=== PATIENT | male | born 1990 | race Hispanic/Latino ===

== ENCOUNTER 2018-03-13 14:28 | Emergency (ER) | payer BC ==
[~2018-03-13] VITALS: Ht 172.7 cm; Wt 115.0 kg
[~2018-03-13 14:28] MED LIST: AMOXICILLIN500 MG PO; AUGMENTIN500TAB PO; CIPROFLOXACN500 MG PO; FLAGYL500 MG PO; NO; ULTRAM50 M1 PO; ZOFRAN4 MG PO
[2018-03-13] MEDS ORDERED: MONTELUKAST SOD10 MG PO (14:49)
[2018-03-13] MEDS ORDERED: ALL DAY ALLG10 MG PO (14:49)
[2018-03-13] MEDS ORDERED: LEVETIRACETAM1000 MG PO (14:50)
[2018-03-13] MEDS ORDERED: TOPROL XL50 MG PO (14:51)
[2018-03-13] MEDS ORDERED: TOPIRAMATE100 MG PO (14:52)
[2018-03-13] MEDS ORDERED: RANITIDINE150 MG PO (14:52)
[2018-03-13] MEDS ORDERED: FLONASE SE27.5 MCG/S NAB (14:53)
[2018-03-13] MEDS ORDERED: SUMATRIPTAN25 MG PO (14:54)
[2018-03-13 15:23] LABS: HEMATOCRIT 48.6 % (39.0-50.0); HEMOGLOBIN 16.3 g/dl (14.0-18.0); IMMATURE GRANULOCYTES 0.4 % (0.0-5.0); MEAN CELL VOLUME 86.6 fL CALC (80.0-100.0); MEAN CORPUSCULAR HGB 29.1 pG CALC (26.0-32.0); MEAN CORPUSCULAR HGB CONC 33.5 g/L CALC (32.0-36.0); NEUT# 4.79 thou/uL (1.82-7.42); RED BLOOD COUNT 5.61 mill/uL (4.70-6.10); RED CELL DISTRI WIDTH 12.9 % (11.5-15.5)
[2018-03-13 15:29] LABS: BARBITURATES NEGATIVE (NEGATIVE); COCAINE NEGATIVE (NEGATIVE); METHADONE NEGATIVE (NEGATIVE); OXCYCODONE NEGATIVE (NEGATIVE); TETRAHYDROCANNABIONOL POSITIVE (NEGATIVE); TRICYLIC ANTIDEPRESSANTS NEGATIVE (NEGATIVE)
[2018-03-13 15:39] LABS: ALBUMIN 4.6 g/dL (3.2-5.0); ALKALINE PHOSPHATASE 112 u/l (38-126); ANION GAP 19 (6-22 (CALC)); BILIRUBIN, TOTAL 0.6 mg/dL (0.0-1.4); BUN 17 mg/dL (9-20); BUN/CREATININE RATIO 15 (12-20 (CALC)); CHLORIDE 113 mmol/l (95-108); CREATININE 1.2 mg/dL (0.7-1.3); GFR > 60 ML/MIN (>=60 (CALC)); GFR FOR AFR.AMER. > 60 ML/MIN (>=60 (CALC)); SGOT/AST 34 u/l (17-59); SODIUM 142 mmol/l (137-146)
[2018-03-13 15:40] LABS: CARBON DIOXIDE 14 mmol/l (22-30)
[2018-03-13 16:08] VITALS: BP 140/78
== END 2018-03-13 16:15 | disposition home or self-care (01) | DRG 101 ==
LOC: ED 14:28
PROVIDERS: Emergency Medicine
DX: G40.909 Epilepsy, unspecified, not intractable, without status epilepticus (principal)

== ENCOUNTER 2021-06-10 19:57 | Emergency (ER) | payer MEDICARE ==
[~2021-06-10 19:57] MED LIST changes: +ALL DAY ALLG10 MG PO; +FLONASE SE27.5 MCG/S NAB; +LEVETIRACETAM1000 MG PO; +MONTELUKAST SOD10 MG PO; +RANITIDINE150 MG PO; +SUMATRIPTAN25 MG PO; +TOPIRAMATE100 MG PO; +TOPROL XL50 MG PO
== END 2021-06-10 20:05 | disposition left against medical advice (07) ==
LOC: ED 19:57
DX: Z91.19 Patient's noncompliance with other medical treatment and regimen (principal)